=== PATIENT | male | born 1950 | race Caucasian/White ===

== ENCOUNTER 2020-02-20 11:00 | Day surgery (SDC) | payer MEDICARE, OTHER ==
[2020-02-20 09:24] LABS: HCT 44.3 % (42.0-52.0); HGB 14.8 g/dl (13.2-18.0); MCH 31.5 pg (25.0-31.0); MCHC 33.4 g/dL (32.0-36.0); MCV 94.3 fL (78.0-100.0); MPV 10.5 fL (6.0-9.5); RBC 4.7 M/uL (4.70-6.00); RDW 12.7 % (11.5-14.0); WBC 8.3 K/uL (4.0-10.5)
[2020-02-20 09:44] LABS: BUN/CREAT RATIO (CALC) 15.5 RATIO; CREATININE 0.84 mg/dL (0.67-1.17); POTASSIUM 3.9 mmol/L (3.5-5.1)
[~2020-02-20 11:00] MED LIST: ACETAMINOPHEN325 MG PO; ADULT LOW DOSE81 MG PO; CARDURA8 MG PO; DAILY MULTIPLE1 EAC1 PO; FEOSOL325 MG PO; LAXATIVE OF CHOICE PO; METOPROLOL TART25 MG PO; NORCO 5/3251 EACH PO; NUCYNTA50 MG PO; PERCOCET 7.5/321 TAB PO; PHENERGAN25 M1 PO; PRILOSEC20 MG PO; SIMVASTATIN40 MG PO; XANAX0.5 MG PO; XARELTO10 MG PO
[2020-02-20] MEDS ORDERED: PERCOCET 7.5/321 TAB PO (15:35)
[2020-02-21 06:01] LABS: BASOPHIL 0.1 % (0-2); EOSINOPHIL 0 % (0-7); HCT 40.1 % (42.0-52.0); HGB 13.5 g/dl (13.2-18.0); LYMPHOCYTE 3.8 % (15-48); MCH 31.8 pg (25.0-31.0); MCHC 33.7 g/dL (32.0-36.0); MCV 94.6 fL (78.0-100.0); MONOCYTE 4.1 % (0-12); MPV 10.9 fL (6.0-9.5); NRBC 0; PLT 289 K/uL (150-400); RBC 4.24 M/uL (4.70-6.00); RDW 12.6 % (11.5-14.0)
[2020-02-21 06:25] LABS: WBC 17.8 K/uL (4.0-10.5)
[2020-02-21 06:26] LABS: NEUTROPHIL 91.4 % (41-80)
[2020-02-21 06:30] LABS: BUN/CREAT RATIO (CALC) 16.7 RATIO; CREATININE 0.78 mg/dL (0.67-1.17); POTASSIUM 4.6 mmol/L (3.5-5.1)
[2020-02-21] MEDS ORDERED: OXYCODONE-ACET1 EAC1 PO (09:18)
[2020-02-21] MEDS ORDERED: FEOSOL325 MG PO (09:18)
[2020-02-21] MEDS ORDERED: XARELTO10 MG PO (09:18)
[2020-02-21] MEDS ORDERED: ULTRA-LIGHT RO1 EACH XX (09:20)
--- NOTE | 2020-02-21 10:02 | NUR ---
PT. TO RETURN HOME WITH SPOUSE. PT. HAS A ROLLING WALKER, HE WILL NOT HAVE HH AT THIS TIME. HE WILL TAKE HIS POLAR PACK HOME.
== END 2020-02-21 12:57 | disposition home or self-care (01) ==
LOC: FMS 11:00 → FAS 11:00 → FMS 14:47 → FAS 02-21 12:57
PROVIDERS: Legal Medicine
DX: S76.111A Strain of right quadriceps muscle, fascia and tendon, initial encounter (principal); S86.811A Strain of other muscle(s) and tendon(s) at lower leg level, right leg, initial encounter; K21.9 Gastro-esophageal reflux disease without esophagitis; N40.0 Benign prostatic hyperplasia without lower urinary tract symptoms; I10 Essential (primary) hypertension; I44.0 Atrioventricular block, first degree; M06.9 Rheumatoid arthritis, unspecified; F41.9 Anxiety disorder, unspecified; E78.5 Hyperlipidemia, unspecified; X50.0XXA Overexertion from strenuous movement or load, initial encounter; Z79.82 Long term (current) use of aspirin; Z87.891 Personal history of nicotine dependence; Z96.652 Presence of left artificial knee joint; R09.02 Hypoxemia
CPT/HCPCS: 36415; 80048; 85025; 93005; 94010; 94762; 97162; 97166; 97530-GP; 97535; C1713; J0690; J1100; J1885; J2250; J2405; J2704; J2795; J3010; J7120

== ENCOUNTER 2020-12-03 06:18 | Day surgery (SDC) | payer MEDICARE, OTHER ==
[~2020-12-03] VITALS: Ht 178 cm; Wt 110.0 kg
[~2020-12-03 06:18] MED LIST changes: +AMOXICILLIN500 MG PO; +BENADRYL25 MG PO; +HEMP PO; +OXYCODONE-ACET1 EAC1 PO; +ULTRA-LIGHT RO1 EACH XX
--- NOTE | 2020-12-03 12:25 | NUR ---
PT HAD LRTSR THIS DATE. PT. IS SCHEDULED TO RETURN HOME ON 12/04.
[2020-12-04 05:45] LABS: BASOPHIL 0.4 % (0-2); EOSINOPHIL 2.3 % (0-7); MCH 31.8 pg (25.0-31.0); MCHC 33.3 g/dL (32.0-36.0); MCV 95.4 fL (78.0-100.0); MONOCYTE 9.8 % (0-12); MPV 10.7 fL (6.0-9.5); NEUTROPHIL 80.2 % (41-80); NRBC 0; PLT 221 K/uL (150-400); RBC 4.09 M/uL (4.70-6.00); RDW 12.8 % (11.5-14.0); WBC 9.8 K/uL (4.0-10.5)
[2020-12-04 06:11] LABS: BUN/CREAT RATIO (CALC) 14.1 RATIO; CREATININE 0.78 mg/dL (0.67-1.17); POTASSIUM 3.8 mmol/L (3.5-5.1)
[2020-12-04] MEDS ORDERED: XARELTO10 MG PO (09:12)
[2020-12-04] MEDS ORDERED: NORCO 5-325 TA1 EACH PO (09:12)
[2020-12-04] MEDS ORDERED: FEOSOL325 MG PO (09:12)
--- NOTE | 2020-12-04 09:59 | NUR ---
TC TO [facility]. PT. COPAY FOR ZAKIGLENN IS $176.16. ADVISED PT AND HIS SPOUSE. ALSO ADVISED NATA LYONS.
[2020-12-04] MEDS ORDERED: ZOFRAN4 M1 PO (10:43)
== END 2020-12-04 13:33 | disposition home or self-care (01) ==
LOC: FAS 06:18 → EDSTATUS 09:00 → FAS 09:00 → FMS 09:00 → FAS 12-04 13:33
PROVIDERS: Legal Medicine
DX: M19.012 Primary osteoarthritis, left shoulder (principal); S46.212A Strain of muscle, fascia and tendon of other parts of biceps, left arm, initial encounter; G89.18 Other acute postprocedural pain; I10 Essential (primary) hypertension; N40.0 Benign prostatic hyperplasia without lower urinary tract symptoms; I45.10 Unspecified right bundle-branch block; I44.0 Atrioventricular block, first degree; I73.9 Peripheral vascular disease, unspecified; E78.5 Hyperlipidemia, unspecified; Z88.6 Allergy status to analgesic agent; Z88.5 Allergy status to narcotic agent; Z96.652 Presence of left artificial knee joint; Z87.891 Personal history of nicotine dependence
CPT/HCPCS: 36415; 73020; 80048; 85025; 86850; 86900; 86901; 94010; 94760; 94762; 97162; 97166; 97530-GP; 97535; C1713; C1776; J0171; J0697; J1885; J2250; J2270; J2370; J2405; J2704; J2795; J3010; J7120